=== PATIENT | female | born 1940 | race Caucasian/White ===

== ENCOUNTER → 2019-10-21 10:31 | Outpatient (CLI) | payer MEDICARE, SELFPAY ==
--- NOTE | ~2019-10-21 | DEXA_ITS ---
Bone Density Report Name: Emmy Cuevas Age: 78 Sex: Female Ethnicity: White Date of : 1940 Indication: postmenopausal; screening for osteoporosis; height loss; Referring Provider: JORDAN GOODMAN Study: Bone densitometry was performed. Exam Date: October 21, 2019 Accession number: [id number] Bone Density: Region BMD T-score Z-score Classification AP Spine (L1, L3) 0.987 -0.2 2.3 Normal Femoral Neck (Left) 0.710 -1.2 1.0 Osteopenia Total Hip (Left) 0.879 -0.5 1.5 Normal Femoral Neck (Right) 0.678 -1.5 0.7 Osteopenia Total Hip (Right) 0.893 -0.4 1.6 Normal Total Hip Mean 0.886 -0.5 1.6 Normal World Health Organization criteria for BMD impression classify patients as: Normal (T-score at or above -1.0), Osteopenia (T-score between -1.0 and -2.5), or Osteoporosis (T-score at or below -2.5). 10-year Fracture Risk(1): Major Osteoporotic Fracture 13% Hip Fracture 3.1% Reported Risk Factors: [place] (), Neck BMD=0.678, BMI=24.0 (1) FRAX(R) Version 3.08. Fracture probability calculated for an untreated patient. Fracture probability may be lower if the patient has received treatment. Previous Exams: Region Exam Age BMD T-score BMD Change BMD Change Date g/cm2 vs Baseline vs Previous AP Spine(L1, L3) 10/21/2019 78 0.987 -0.2 0.113* 0.035* 07/03/2016 75 0.951 -0.6 0.077* -0.029* 06/29/2014 73 0.980 -0.3 0.106* 0.044* 04/30/2012 71 0.935 -0.7 0.062* 0.115* 04/29/2010 69 0.820 -1.8 -0.053* -0.032* 04/27/2008 67 0.853 -1.5 -0.021 -0.057* 04/26/2006 65 0.909 -0.9 0.035* 0.035* 02/15/2004 63 0.874 -1.3 Total Hip(Left) 10/21/2019 78 0.879 -0.5 -0.185* -0.038* 07/03/2016 75 0.917 -0.2 -0.146* -0.036* 06/29/2014 73 0.953 0.1 -0.111* 0.049* 04/30/2012 71 0.904 -0.3 -0.160* -0.001 04/29/2010 69 0.905 -0.3 -0.159* -0.071* 04/27/2008 67 0.975 0.3 -0.088* 0.059* 04/26/2006 65 0.916 -0.2 -0.147* -0.147* 02/15/2004 63 1.064 1.0 Total Hip(Right) 10/21/2019 78 0.893 -0.4 -0.151* -0.064* 07/03/2016 75 0.958 0.1 -0.086* -0.035* 06/29/2014 73 0.993 0.4 -0.051* 0.061* 04/30/2012 71 0.932 -0.1 -0.112* 0.019 04/29/2010 69 0.913 -0.2 -0.131* -0.025 04/27/2008 67 0.937 0.0 -0.107* 0.007 04/26/2006 6
== END ==
PROVIDERS: Visit Provider Obstetrics & Gynecology Gynecology
DX: Z78.0 Asymptomatic menopausal state (principal); M85.89 Other specified disorders of bone density and structure, multiple sites
CPT/HCPCS: 77080

== ENCOUNTER → 2022-04-24 09:13 | Outpatient (CLI) | payer MEDICARE, SELFPAY ==
--- NOTE | ~2022-04-24 | DEXA_ITS ---
Bone Density Report Name: GUILLERMO GERMAN Age: 81 Sex: Female Ethnicity: White Date of : 1940 Indication: postmenopausal; screening for osteoporosis; height loss; Referring Provider: Ricky, Pepper Study: Bone densitometry was performed. Exam Date: April 24, 2022 Accession number: [id number] There is hypertrophic degenerative change of the lumbar spine, which results in higher than expected spine bone mineral density measurements. These spine BMD and T score and Z score measurements are not reflective of the patient's true general bone mineral density. Bone Density: Region BMD T-score Z-score Classification AP Spine (L1, L3) 0.969 -0.4 2.2 Normal Femoral Neck (Left) 0.685 -1.5 0.9 Osteopenia Total Hip (Left) 0.866 -0.6 1.5 Normal Femoral Neck (Right) 0.664 -1.7 0.7 Osteopenia Total Hip (Right) 0.834 -0.9 1.3 Normal Total Hip Mean 0.850 -0.8 1.4 Normal World Health Organization criteria for BMD impression classify patients as: Normal (T-score at or above -1.0), Osteopenia (T-score between -1.0 and -2.5), or Osteoporosis (T-score at or below -2.5). 10-year Fracture Risk(1): Major Osteoporotic Fracture 13% Hip Fracture 3.6% Reported Risk Factors: [place] (), Neck BMD=0.664, BMI=23.2 (1) FRAX(R) Version 3.08. Fracture probability calculated for an untreated patient. Fracture probability may be lower if the patient has received treatment. Previous Exams: Region Exam Age BMD T-score BMD Change BMD Change Date g/cm2 vs Baseline vs Previous AP Spine(L1, L3) 04/24/2022 81 0.969 -0.4 0.095* -0.018 10/21/2019 78 0.987 -0.2 0.113* 0.035* 07/03/2016 75 0.951 -0.6 0.077* -0.029* 06/29/2014 73 0.980 -0.3 0.106* 0.044* 04/30/2012 71 0.935 -0.7 0.062* 0.115* 04/29/2010 69 0.820 -1.8 -0.053* -0.032* 04/27/2008 67 0.853 -1.5 -0.021 -0.057* 04/26/2006 65 0.909 -0.9 0.035* 0.035* 02/15/2004 63 0.874 -1.3 Total Hip(Left) 04/24/2022 81 0.866 -0.6 -0.198* -0.013 10/21/2019 78 0.879 -0.5 -0.185* -0.038* 07/03/2016 75 0.917 -0.2 -0.146* -0.036* 06/29/2014 73 0.953 0.1 -0.111* 0.049* 04/30/2012 71 0.904 -0.3 -0.160* -0.001 04/29/2010 69 0.905 -0.3 -0.159* -0.071* 04/27/2008 67 0.975 0.3 -0.088* 0.059* 04/26/2006 65 0.916 -0.2 -0.147* -0.147* 02/15/2004 63 1.064 1.0 Total Hip(Right)
== END ==
PROVIDERS: PCP Family Medicine; Visit Provider Nurse Practitioner
DX: Z78.0 Asymptomatic menopausal state (principal); M85.852 Other specified disorders of bone density and structure, left thigh; M85.851 Other specified disorders of bone density and structure, right thigh
CPT/HCPCS: 77080

== ENCOUNTER 2024-10-05 19:36 | Emergency (ER) | payer OTHER, MEDICARE, SELFPAY ==
--- OUTSIDE RECORDS SUMMARY | 2024-10-05 19:38 | XMS_ITS | Encounter Summary ---
Author Organization [facility] Facility Care Team Providers Care Protective Services Officer Name Role Phone Ranulfo Nava MD Primary Care Provider [phone] Madina Lozano MD Unavailable [phone] Encounter Details Date Type Department Care Team (Latest Contact Info) Description 06/08/2017 Orders Only [facility] Provider, MD Eulalia [address] [place] [id number] Social History Tobacco Use Types Packs/Day Years Used Date Smoking Tobacco: Former Comments Unknown Sex and Gender Information Value Date Recorded Sex Assigned at Not on file Legal Sex Female 1:09 AM WIND FIELD MANAGER Gender Identity Female 04/22/2020 7:32 AM WIND FIELD MANAGER Sexual Orientation Straight 06/27/2021 7: 53 AM CDT documented as of this encounter Plan of Treatment Not on file documented as of this encounter Procedures Procedure Name Priority Date/Time Associated Diagnosis Comments SCAN - LABS 06/11/2017 12:00 AM CDT documented in this encounter Results * SCAN - LABS (06/11/2017 12:00 AM CDT) Narrative 06/11/2017 12:00 AM CDT Ordered by an unspecified provider. Historical Provider Final Res ult documented in this encounter Visit Diagnoses Not on filedocumented in this encounter Care Teams Protective Services Officer Relationship Specialty Start Date End Date Ranulfo Nava MD PCP - General Family Medicine 05/06/18 Madina Lozano MD [address] [place] [address] Referring Physician Gynecology 07/05/22 documented as of this encounter
--- OUTSIDE RECORDS SUMMARY | 2024-10-05 19:38 | XMS_ITS | Encounter Summary ---
Author Organization 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 Historical Provider Final Res ult documented in this encounter Visit Diagnoses Not on filedocumented in this encounter Care Teams Coal Digger Relationship Specialty Start Date End Date Ranulfo Nava MD PCP - General Family Medicine 05/06/18 Madina Lozano MD [address] [place] [address] Referring Physician Gynecology 07/05/22 documented as of this encounter
--- OUTSIDE RECORDS SUMMARY | 2024-10-05 19:38 | XMS_ITS | Clinical Summary ---
Author Organization [facility] Address [address] [place] [address] Care Team Providers Care Director Smb Sales Name Role Phone Ranulfo Nava MD Primary Care Provider [phone] Madina Lozano MD Unavailable [phone] Allergies Active Allergy Reactions Criticality Noted Date Comments Nsaids (Non-Steroidal Anti-Inflammatory Drug) Other (See comments) Low 04/26/2016 Penicillins Other (See comments),Rash Medium 7 Sulfa (Sulfonamide Antibiotics) Other (See comments) Low 05/27/2013 Venom-Honey Bee Other (See comments),Rash High 04/26 Medications aspirin 81 mg chewable tablet 06/24/2015Aspirin, po solid 81 mg Tablet, delayed release (enteric coated)POdailyCurrent Medication 06/24/19 16 Active calcium carbonate-vit henderson D3 600 mg calcium- 200 unit capsule 2 (two) times a day 06/24/19 16 Active multivitamin capsule 06/24/2015Multivitamin, po solid TabletPOdailyCurrent Medication 06/24/19 16 Active ergocalcifero l (VITAMIN D) 50,000 unit capsule TK 1 C PO EVERY MONTH 3 18 Active MAGNESIUM OXIDE ORAL Take 144 mg by mouth 2 (two) times a day Active nmirh-5-ufl-e pa-dpa-fish oil 1,050-1,200 mg capsule 1 capsule Active cetirizine (ZyrTEC) 10 mg tablet Take 1 tablet (10 mg total) by mouth daily Act karen nebivoloL (BYSTOLIC) 5 mg tablet TAKE 1 TABLET BY MOUTH DAILY 90 tablet 3 12/24/19 24 Active rosuvastatin (CRESTOR) 5 mg tablet TAKE 1 TABLET BY MOUTH EVERY THIRD DAY 90 tablet 3 04/09/19 25 Active amLODIPine-be nazepriL (LOTREL) 10-40 mg per capsule TAKE 1 CAPSULE BY MOUTH DAILY 100 capsule 1 06/26/19 25 Active Active Problems Problem Noted Date Diagnosed Date Osteopenia of multiple sites 11/01/2020 History of breast cancer 05/06/2019 Medicare annual wellness visit, subsequent 05/06 Lumbar radiculopathy 08/07/2017 HTN (hypertension) 06/03/2015 Overview (10/24/2018): Controlled Mixed hyperlipidemia 06/03/2015 Overview (10/24/2018): Unmedicated, patient declines medication, states understanding of risk Vitamin D deficiency 06/03/2015 Resolved Problems Problem Noted Date Diagnosed Date Resolved Date COVID-19 virus infection 03/09/2022 Cervical adenopathy 03/09/2022 03/27/19 24 Malignant neoplasm of female breast 05/06/2018 11/12/2023 Anxiety 06/21/2017 11/10/2021 Sciatica of right side 06/11/201705/14 Sciatica of left side 11/03/20152023 Overview (11/15/2022): Responds to conservative measures Allergic rhinitis 06/03/2015 05/14/2023 Encounters Date Type Department Care Team Description 07/21/2024 Results Follow-Up [facility] Surgery [address] [place] [phone] Madeline Hatch NP Screening Mammogram Bilateral W Allie 07/18/2024 9:15 AM CDT Office Visit [facility] Surgery [address] [place] [address] [address] [place] [phone] Madeline Hatch NP Infiltrating ductal carcinoma of right breast (HCC) (Primary Dx); History of breast cancer; Encounter for screening mammogram for malignant neoplasm of breast 07/18/2024 9:12 AM CDT - 07/18/2024 11:59 PM CDT Hospital Encounter [facility] - Breast Imaging [address] [facility] Floor [address] [place] [address] History of breast cancer; Encounter for screening mammogram for malignant neoplasm of breast Discharge Disposition: Discharge to home or self care 07/07/2024 Orders Only [facility] Surgery [address] [facility] Floor [address] [place] [phone] Oksana Burns CMA History of breast cancer (Primary Dx); Encounter for screening mammogram for malignant neoplasm of breast from Last 3 Months Immunizations Immunization Administration Dates Next Due Influenza, Quad, Adjuvantate d, Intramuscular 12/15/2019 Influenza, Quadrivalent, Kim l Culture-based MDCK, Preservative Free, Antibiotic Free, Intramuscular 12/20/2022 Influenza, Quadrivalent, Hig h Dose, Preservative Free, Intrr 12/14/2020 Influenza, Quadrivalent, Spl it, Intramuscular 12/17/2022,12/14/2021 Influenza, Quadrivalent, Spl it, Preservative Free, Intramuscular 12/14/2021,12/12/2018 Influenza, Trivalent, Adjuva nted, Intramuscular 12/11/2017 Influenza, Trivalent, High D ose, Split, Preservative Free, Intramuscular 12/12/2018 Influenza, Trivalent, IM (MDV) 7,11/26/2014,11/27/2013,11/27 Influenza, Trivalent, Preser vative Free, Intramuscular 11/28/2015 Influenza, Unspecified 12/20/2023,2020,12/12/2017,11/28,06/24/2015,06/08/2014,06/09/2013 Moderna SARS-CoV-2 Monovalen t Vaccination (12+ YRS) 06/07/2020,04/29/2020 Moderna Sars-cov-2 Bivalent Vaccine 50 Mcg/0.5 mL (12+ YRS)-Blue/Galvan 12/19/2023 Pneumococcal Conjugate PCV 13 11/06/2016 Pneumococcal Polysaccharide PPV23 12/17/2008 Td, adsorbed 12/14/2003 ZOSTER LIVE 06/02/2011 ZOSTER Recombinant 01/16/2023,11/17/2022 Surgical History Surgery Date Site/Laterality Comments BREAST LUMPECTOMY 03/19/2005 - 03/18/2006 Right TONSILLECTOMY AND ADENOIDECTOMY 1946 CERVICAL CONE BIOPSY 1967 VAGINAL DELIVERY x4 COLONOSCOPY Medical History Medical History Date Comments Hyperlipidemia Hypertension Anxiety Family History Medical History Relation Name Comments No Known Problems Brother Hypertension Father No Known Problems Maternal Grandfather No Known Problems Maternal Grandmother Hypertension Mother No Known Problems Paternal Grandfather No Known Problems Paternal Grandmother Alzheimer's disease Sister Relation Name Status Comments Brother Alive Father Maternal Grandfather Maternal Grandmother Mother Paternal Grandfather Paternal Grandmother Sister Social History Tobacco Use Types Packs/Day Years Used Date Smoking Tobacco: Former Cigarettes 0.5 12 1 960 - 1971 Smokeless Tobacco: Never Tobacco Cessation:Counseling Given: Not Answered Alcohol Use Standard Drinks/Week Comments No 0 (1 standard drink = 0.6 oz pur e alcohol) AUDIT-C Answer Date Recorded Q1: How often do you have a drink containing alc ohol? Monthly or less 09/01/2021 Q2: How many drinks containi ng alcohol do you have on a typical day when you are drinking? 1 or 2 09/01/2021 Q3: How often do you have si x or more drinks on one occasion? Never 09/01/2021 PHQ-2 Answer Date Recorded PHQ-2 Total Score (If total score is 3 or more points, staff should administer the PHQ-9) 0 05/19/2024 Comments No Sex and Gender Information Value Date Recorded Sex Assigned at Not on file Legal Sex Female 1:09 AM SALES UTILITY REPRESENTATIVE Gender Identity Female 04/22/2020 7:32 AM SALES UTILITY REPRESENTATIVE Sexual Orientation Straight 06/27/2021 7: 53 AM CDT Obstetrics History Last Filed Vital Signs Vital Sign Reading Time Taken Comments Blood Pressure 126/70 05/23/2024 7:00 AM SALES UTILITY REPRESENTATIVE pt reported Pulse 67 05/23/2024 7:00 AM SALES UTILITY REPRESENTATIVE Temperature 36.6 C (97.9 F) 05/19/2024 8:43 AM SALES UTILITY REPRESENTATIVE Respiratory Rate 18 03/27/2023 11:5 1 AM SALES UTILITY REPRESENTATIVE Oxygen Saturation 99% 05/19/2024 8:4 3 AM SALES UTILITY REPRESENTATIVE Inhaled Oxygen Concentration - - Weight 52.7 kg (116 lb 3.2 oz) 07/19/19 8:48 AM CDT Height 151 cm (4' 11.45) 07/18/2024 8: 48 AM CDT Body Mass Index 23.12 07/18/2024 8:48 AM CDT Plan of Treatment Health Maintenance Due Date Last Done Comments Hepatitis B Screening 1958 DTaP/Tdap/Td Vaccine (1 - Tdap) 12/15/2003 Covid-19 Vaccine (2023-2 5 season) 2024 12/19/2023, 10/11/2021, 02/03/2021, Additional history exists Osteoporosis Screening-Bone Density Scan 04/24/2024 04/24/2022 Influenza Vaccine (#1) 2024 , 12/20/2022, 12/17/2022, Additional history exists Depression Screening 05/19/2025 05/19/2024, 05/14/2023, 11/15/2022, Additional history exists Fall Risk Assessment 05/19/2025 05/19/2024, 05/14/2023, 11/15/2022, Additional history exists Well Visit 65+ 05/19/2025 05/19/2024, 04/20, 05/11/2022, Additional history exists Pneumococcal vaccine 65+ Completed 11/06/2016, 03/2008 Zoster Vaccine Completed 01/16/2023, 03/2022, 06/02/2011 Procedures Procedure Name Priority Date/Time Associated Diagnosis Comments SCREENING MAMMOGRAM BILATERAL W ALLIE Schedule Routine, Read Routine (OP Routine) 07/18/2024 9:29 AM CDT History of breast cancer Encounter for screening mammogram for malignant neoplasm of breast HM DEXA SCAN Routine 04/24/2022 from Last 3 Months or Most Recently Relevant to Health Maintenance Results * Screening Mammogram Bilateral W Allie (07/18/2024 9:29 AM CDT) Anatomical Region Laterality Modality Breast Bilateral Mammography Addenda Addendum by Karma Deleon MD on 07/21/2024 11:33 AM CDT ADDENDED REPORT 07/21/2024 at 11:33:26 Addendum: Mammogram Findings: The breasts are heterogeneously dense, which may obscure small masses. There is a post-surgical scar in the right breast. Finding remains unchanged from the prior study. Impression: Upon further review, post-surgical scar in the right breast is benign. As this patient is over 80 years of age, further mammographic screening can be obtained as clinically indicated. OVERALL FINAL ASSESSMENT: BI-RADS CATEGORY 2: Benign. THIS REPORT HAS BEEN ADDENDED Narrative 07/21/2024 11:32 AM CDT ORIGINAL REPORT Mammogram Technique: Bilateral Digital Breast Tomosynthesis, Bilateral C-view 2D Screening mammogram. Views obtained: bilateral craniocaudal and bilateral mediolateral oblique. Computer Aided Detection was performed. Mammogram Findings: The present examination has been compared to prior imaging studies performed at [facility] on 07/04/2021, 07/05/2022 and 07/11/2023. There are scattered areas of fibroglandular density. There is no suspicious abnormality in either breast. There are no significant changes from the prior study. Impression: There is no mammographic evidence of malignancy. As this patient is over 80 years of age, further mammographic screening can be obtained as clinically indicated. OVERALL FINAL ASSESSMENT: BI-RADS CATEGORY 1: Negative. Procedure Note Karma Deleon MD - 07/21/2024 ORIGINAL REPORT Mammogram Technique: Bilateral Digital Breast Tomosynthesis, Bilateral C-view 2D Screening mammogram. Views obtained: bilateral craniocaudal and bilateral mediolateral oblique. Computer Aided Detection was performed. Mammogram Findings: The present examination has been compared to prior imaging studies performed at [facility] on 07/04/2021, 07/05/2022 and 07/11/2023. There are scattered areas of fibroglandular density. There is no suspicious abnormality in either breast. There are no significant changes from the prior study. Impression: There is no mammographic evidence of malignancy. As this patient is over 80 years of age, further mammographic screeningcan be obtained as clinically indicated. OVERALL FINAL ASSESSMENT: BI-RADS CATEGORY 1: Negative. Madeline Hatch NP IMG MAMMO PROCEDURES Edite d Result - Final * DEXA SCAN (04/24/2022) Historical Provider HEALTH MAINTENANCE Final Result from Last 3 Months or Most Recently Relevant to Health Maintenance Insurance [facility] MEDICARE ADVANTAGE [facility] MEDICARE Address: [facility] [address] [place] [address] [facility] MEDICARE Address: [address] [place] [phone] [facility] MEDICARE Address: [address] [place] [address] Advance Directives For more information, please contact: [phone] Documents on File Type Date Recorded Patient Executive Producer Expl anation Power of Steam Roller Operator 09/01/2021 6:51 AM Advance Directives and Livin g Will 09/01/2021 6:50 AM ADVANCE DIRECTIVE 11/01/2020 Care Teams Director Smb Sales Relationship Specialty Start Date End Date Ranulfo Nava MD PCP - General Family Medicine 05/06/18 Madina Lozano MD [address] [facility] [address] [place] [address] Referring Physician Gynecology 07/05/22
--- OUTSIDE RECORDS SUMMARY | 2024-10-05 19:38 | XMS_ITS | Referral Summary ---
Author Organization [facility] al Address [address] [place] [address] Care Team Providers Care Wire Loop Machine Operator Name Role Phone Ranulfo Nava MD Primary Care Provider [phone] Madina Lozano MD Unavailable [phone] Encounters Date Type Department Care Team Description 07/21/2024 Results Follow-Up [facility] Surgery [address] [place] [phone] Madeline Hatch NP Screening Mammogram Bilateral W Allie 07/18/2024 9:12 AM CDT - 07/18/2024 11:59 PM CDT Hospital Encounter [facility] - Breast Imaging [address] [place] [address] History of breast cancer; Encounter for screening mammogram for malignant neoplasm of breast Discharge Disposition: Discharge to home or self care 07/18/2024 9:15 AM CDT Office Visit [facility] Surgery [address] [place] [phone] Madeline Hatch NP Infiltrating ductal carcinoma of right breast (HCC) (Primary Dx); History of breast cancer; Encounter for screening mammogram for malignant neoplasm of breast 07/07/2024 Orders Only [facility] Surgery [address] [place] [address] [address] [place] [address] Oksana Burns CMA History of breast cancer (Primary Dx); Encounter for screening mammogram for malignant neoplasm of breast from Last 3 Months Allergies Active Allergy Reactions Criticality Noted Date [...] mouth 2 (two) times a day Active dobiq-1-cik-e pa-dpa-fish oil 1,050-1,200 mg capsule 1 capsule [...] virus infection 03/09/2022 Cervical adenopathy 03/09/2022 03/27/19 Malignant neoplasm of female breast 05/06/2018 11/12/2023 Anxiety 06/21/2017 11/10/2021 Sciatica of right side 06/11/201705/14 Sciatica of left side 11/03/20152023 Overview (11/15/2022): Responds to conservative measures Allergic rhinitis 06/03/2015 05/14/2023 Immunizations Immunization Administration Dates Next Due Influenza, [...] 12/14/2003 ZOSTER LIVE 06/02/2011 ZOSTER Recombinant 01/16/2023,11/17/2022 Social History Tobacco Use Types Packs/Day Years Used Date Smoking Tobacco: Former Cigarettes 0.5 12 1 960 - 1972 Smokeless Tobacco: Never Tobacco Cessation:Counseling Given: Not [...] file Legal Sex Female 1:09 AM SALES MARKETING MANAGER Gender Identity Female 04/22/2020 7:32 AM SALES MARKETING MANAGER Sexual Orientation Straight 06/27/2021 7: 53 AM CDT Last Filed Vital Signs Vital Sign Reading Time Taken Comments Blood Pressure 126/70 05/23/2024 7:00 AM SALES MARKETING MANAGER pt reported Pulse 67 05/23/2024 7:00 AM SALES MARKETING MANAGER Temperature 36.6 C (97.9 F) 05/19/2024 8:43 AM SALES MARKETING MANAGER Respiratory Rate 18 03/27/2023 11:5 1 AM SALES MARKETING MANAGER Oxygen Saturation 99% 05/19/2024 8:4 3 AM SALES MARKETING MANAGER Inhaled Oxygen Concentration - - Weight 52.7 kg (116 lb 3.2 oz) 07/19/19 8:48 AM CDT Height 151 cm (4' 11.45) 07/18/2024 8: 48 AM CDT Body Mass Index 23.12 07/18/2024 8:48 AM CDT Plan of Treatment Not on file Procedures Procedure Name Priority Date/Time Associated Diagnosis Comments SCREENING MAMMOGRAM BILATERAL W ALLIE Schedule Routine, Read Routine (OP Routine) 07/18/2024 9:29 AM CDT History of breast cancer Encounter for screening mammogram for malignant neoplasm of breast DEXA SCAN Routine 04/24/2022 from Last 3 [...] compared to prior imaging studies performed at [facility] on 07/04/2021, 07/05/2022 and 07/11/2023. There [...] compared to prior imaging studies performed at [facility] on 07/04/2021, 07/05/2022 and 07/11/2023. There [...] Most Recently Relevant to Health Maintenance Insurance [facility] MEDICARE ADVANTAGE MEDICARE ADVANTAGE Advance Directives For more information, please contact: [phone] Documents on File Type Date Recorded Patient Body Fitter Expl anation Power of Attendant Campground 09/01/2021 6:51 AM Advance Directives and Livin g Will 09/01/2021 6:50 AM ADVANCE DIRECTIVE 11/01/2020 Care Teams Wire Loop Machine Operator Relationship Specialty Start Date End Date Ranulfo Nava MD PCP - General Family Medicine 05/06/18 Madina Lozano MD [address] [address] Referring Physician Gynecology 07/05/22
--- OUTSIDE RECORDS SUMMARY | 2024-10-05 19:38 | XMS_ITS | Encounter Summary ---
Author Organization [facility] Facility Care Team Providers Care Elevator Operator Freight Name Role Phone Ranulfo Nava MD Primary Care Provider [phone] Madina Lozano MD Unavailable [phone] Encounter Details Date Type Department Care Team (Latest Contact Info) Description 06/03/2018 Orders Only [facility] CLINCON[facility] ProviderEulalia MD [address] [place] [address] Social History Tobacco Use Types Packs/Day Years Used Date Smoking Tobacco: Former Alcohol Use Standard Drinks/Week Comments No 0 (1 standard drink = 0.6 oz pur e alcohol) Comments Unknown Sex and Gender Information Value Date Recorded Sex Assigned at Not on file Legal Sex Female 1:09 AM ENGINEERING TECHNICIAN PARKING Gender Identity Female 04/22/2020 7:32 AM ENGINEERING TECHNICIAN PARKING Sexual Orientation Straight 06/27/2021 7: 53 AM CDT documented as of this encounter Plan of Treatment Not on file documented as of this encounter Procedures Procedure Name Priority Date/Time Associated Diagnosis Comments SCAN - LABS 06/15/2018 12:00 AM CDT documented in this encounter Results * SCAN - LABS (06/15/2018 12:00 AM CDT) Narrative 06/15/2018 12:00 AM CDT Ordered by an unspecified provider. us Historical Provider Final Res ult documented in this encounter Visit Diagnoses Not on filedocumented in this encounter Care Teams Elevator Operator Freight Relationship Specialty Start Date End Date Ranulfo Nava MD PCP - General Family Medicine 05/06/18 Madina Lozano MD [address] [place] [address] Referring Physician Gynecology 07/05/22 documented as of this encounter
--- OUTSIDE RECORDS SUMMARY | 2024-10-05 19:38 | XMS_ITS | Encounter Summary ---
Author Organization [facility] Facility Care Team Providers Care Mfts Name Role Phone Ranulfo Nava MD Primary Care Provider [phone] Madina Lozano MD Unavailable [phone] Encounter Details Date Type Department Care Team (Latest Contact Info) Description 08/10/2017 Orders Only [facility] CLINCONV ProviderEulalia MD [address] [place] [address] Social History Tobacco Use Types Packs/Day Years Used Date Smoking Tobacco: Former Comments Unknown Sex and Gender Information Value Date Recorded Sex Assigned at Not on file Legal Sex Female 1:09 AM CHEMICAL UNIT OPERATOR Gender Identity Female 04/22/2020 7:32 AM CHEMICAL UNIT OPERATOR Sexual Orientation Straight 06/27/2021 7: 53 AM CDT documented as of this encounter Plan of Treatment Not on file documented as of this encounter Procedures Procedure Name Priority Date/Time Associated Diagnosis Comments PROCEDURE - RESULT 08/15/2017 12 :00 AM CDT PROCEDURE - RESULT 08/15/2017 12 :00 AM CDT documented in this encounter Results * PROCEDURE - RESULT (08/15/2017 12:00 AM CDT) Narrative 08/15/2017 12:00 AM CDT Ordered by an unspecified provider. us Historical Provider Final Res ult * PROCEDURE - RESULT (08/15/2017 12:00 AM CDT) Narrative 08/15/2017 12:00 AM CDT Ordered by an unspecified provider. us Historical Provider Final Res ult documented in this encounter Visit Diagnoses Not on filedocumented in this encounter Care Teams Mfts Relationship Specialty Start Date End Date Ranulfo Nava MD PCP - General Family Medicine 05/06/18 Madina Lozano MD [address] [place] [address] Referring Physician Gynecology 07/05/22 documented as of this encounter
--- OUTSIDE RECORDS SUMMARY | 2024-10-05 19:38 | XMS_ITS | Encounter Summary ---
Author Organization [facility] Facility Care Team Providers Care Utility Accounts Director Name Role Phone Ranulfo Nava MD Primary Care Provider [phone] Madina Lozano MD Unavailable Encounter Details Date Type Department Care Team (Latest Contact Info) Description 07/18/2017 Orders Only [facility] CLINCONV Provider, MD Eulalia [address] [place] [address] Social History Tobacco Use Types Packs/Day Years Used Date Smoking Tobacco: Former Comments Unknown Sex and Gender Information Value Date Recorded Sex Assigned at Not on file Legal Sex Female 1:09 AM MANAGER COMMUNITY RELATIONS Gender Identity Female 04/22/2020 7:32 AM MANAGER COMMUNITY RELATIONS Sexual Orientation Straight 06/27/2021 7: 53 AM CDT documented as of this encounter Plan of Treatment Not on file documented as of this encounter Procedures Procedure Name Priority Date/Time Associated Diagnosis Comments SCAN - LABS 07/19/2017 12:00 AM CDT documented in this encounter Results * SCAN - LABS (07/19/2017 12:00 AM CDT) Narrative 07/19/2017 12:00 AM CDT Ordered by an unspecified provider. Historical Provider Final Res ult documented in this encounter Visit Diagnoses Not on filedocumented in this encounter Care Teams Utility Accounts Director Relationship Specialty Start Date End Date Ranulfo Nava MD PCP - General Family Medicine 05/06/18 Madina Lozano MD [address] [place] [address] Referring Physician Gynecology 07/05/22 documented as of this encounter
--- OUTSIDE RECORDS SUMMARY | 2024-10-05 19:38 | XMS_ITS | Clinical Summary ---
Author Organization [facility] Address [address] [place] [address] Care Team Providers Care Drop Forger Helper Name Role Phone Rafael Olea MD Primary Care Provider [phone] Allergies Active Allergy Reactions Criticality Noted Date Comments Bee Venom Rash High 08/07/2017 Penicillins Rash Low 08/07/2017 Medications vitamin D2, ergocalciferol, [address] UNITS capsule Take 50,000 Units by mouth monthly. Active calcium citrate-vitamin D 200-250 MG-UNIT Tab Take 1 tablet by mouth 2 (two) times daily. Active multi vitamin/mineral s tablet Take 1 tablet by mouth daily. Active aspirin EC (ASPIRIN) 81 MG EC tablet Take 81 mg by mouth daily. Active loratadine 10 MG tablet Take 10 mg by mouth daily. Active hydrocodone-usha taminophen 5-325 MG tablet Take 1 tablet by mouth every 6 (six) hours as needed for Pain. Active meloxicam 7.5 MG tablet Take 7.5 mg by mouth 2 (two) times a day. Active Amlodipine Besy-Benazepril HCl (LOTREL) 10-40 MG Cap Take 1 capsule by mouth daily. Active Misc Natural Products (TURMERIC CURCUMIN) capsule Take 1 capsule by mouth daily. Active hydrocodone-usha taminophen 5-325 MG tablet Take 1 tablet by mouth every 6 (six) hours as needed. 30 tablet 09/12/2017 Active Active Problems Problem Noted Date Diagnosed Date Lumbar radiculopathy 08/07/2017 Social History Tobacco Use Types Packs/Day Years Used Date Smoking Tobacco: Former Cigarettes 1 967 - 1971 Smokeless Tobacco: Never Alcohol Use Standard Drinks/Week Comments Yes 0 (1 standard drink = 0.6 oz pur e alcohol) rarely Comments No Sex and Gender Information Value Date Recorded Sex Assigned at Not on file Legal Sex Female 4:12 PM CDT Gender Identity Not on file Sexual Orientation Not on file Last Filed Vital Signs Vital Sign Reading Time Taken Comments Blood Pressure 152/73 09/06/2017 12:22 PM CDT Pulse 75 09/06/2017 12:22 PM CDT Temperature 36.6 C (97.9 F) 09/06/2017 11:32 AM CDT Respiratory Rate 20 09/06/2017 12:22 PM CDT Oxygen Saturation 99% 09/06/2017 12:22 PM CDT Inhaled Oxygen Concentration - - Weight 52.7 kg (116 lb 3.2 oz) 08/10/2017 3:08 P M CDT Height 151.8 cm (4' 11.75) 08/10/2017 3:08 PM C DT Body Mass Index 22.88 08/10/2017 3:08 PM CDT Plan of Treatment Health Maintenance Due Date Last Done Comments DTaP, Tdap and Td Vaccines ( 1 - Tdap) 11[birth year]01/1959 Pneumococcal Vaccine: 50+ Ye ars (1 of 1 - PCV) 1990 Zoster Vaccines (1 of 2) 1990 Annual Medicare Wellness Visit 2005 Dexa Scan (General) 2005 RSV Immunization or 60+ Years (1 - 1-dose 75+ series) 11/01/2015 COVID-19 Vaccine ( - 2023-2 5 season) 2023 Meningococcal B Vaccine Aged Out No l onger eligible based on patient's age to complete this topic Meningococcal Vaccine Aged Out No juan ijeoma eligible based on patient's age to complete this topic RSV Immunizations Under 20 Months Aged Out No longer eligible based on patient's age to complete this topic Insurance [facility] Advance Directives Documents on File Type Date Recorded Patient Supervisor Screen Making Expl anation Advance Directives and Living Will 09/09/2017 2:09 PM 05-22-16 POA FOR HEALTHCARE Care Teams Drop Forger Helper Relationship Specialty Start Date End Date Rafael Olea MD [address] [place] [address] PCP - General FAMILY PRACTICE 07/19/17
[2024-10-05 20:18] VITALS: BP 158/65; PULSE 85; RESP 16; TEMP 36.6; O2SAT 96
[2024-10-05 22:28] VITALS: BP 132/61; PULSE 77; RESP 18; O2SAT 98
--- NOTE | 2024-10-05 22:33 | ED.ANIMALBIT ---
HPI - Animal Bite General Chief Complaint: Animal Bite Stated Complaint: dog bite to right forearm Time Seen by Provider: 10/05/24 21:53 History of Present Illness HPI narrative: 83-year-old female with no pertinent past medical history presenting to the ER for evaluation of a dog bite to the right forearm. Patient is not up-to-date on her vaccines for tetanus. The dog is up-to-date on vaccines and is a household animal and her neighbor's dog. Sounds like it could have been a provoked bite while she was approaching her garden with the animal on the other side of the fence. Patient denies any other injuries and has a single dog bite with some macerated tissue to the lateral right forearm. No active bleeding. No restricted range of motion or scooping machine tender strength loss. No significant swelling or drainage. Bleeding controlled. No other appreciable trauma and she was otherwise in her normal state of health. No systemic symptoms. Related Data Home Medications ?Medication ?Instructions ?Recorded ?Confirmed ?Last Taken ?Type amlodipine 10 mg-benazepril 40 mg 1 cap PO DAILY 05/25/21 05/25/21 Unknown History capsule aspirin 81 mg tablet,delayed 81 mg PO DAILY 05/25/21 05/25/21 Unknown History release (Adult Low Dose Aspirin) Allergies Allergy/AdvReac Type Severity Reaction Status Date / Time Penicillins Allergy Mild Unknown Verified 10/05/24 19:40 Sulfa (Sulfonamide Allergy Mild Unknown Verified 10/05/24 19:40 Antibiotics) Review of Systems Review of Systems: As reviewed above in HPI [facility] Social History Social History Smoking status: Never smoker Alcohol intake: never Substance use: never Exam Narrative: GENERAL: [Well-appearing, well-nourished, and in no acute distress.] HEAD: [Normocephalic, atraumatic.] EYES: [PERRLA and EOMI.] ENT: Nares clear, no rhinorrhea or epistaxis. Mucous membranes moist. NECK: Supple. CHEST: [Clear to auscultation. No respiratory distress.] HEART: [Regular rate and rhythm]. No murmur heard. [Normal peripheral pulses.] ABDOMEN: [Soft, nondistended], [nontender], [No rigidity or guarding] EXTREMITIES: Normal range of motion, no extremity edema, scooping machine tender strength 5/5, full range of motion of the elbow, wrist and able to oppose each digit without difficulty. SKIN: There is an irregularly appearing smhzhc-oj-quapbq shaped avulsion of skin tissue with some soft tissue extruding fat to the lateral right forearm but no swelling or bleeding. Dimensions measure approximately 2 cm x 1.5 cm NEURO: [No focal deficits]. Alert and oriented [x3.] PSYCH: [Normal mood and affect.] Course Vital Signs Vital signs: Vital Signs Temperature 36.6 C 10/05/24 20:18 Pulse Rate 85 10/05/24 20:18 Respiratory Rate 16 10/05/24 20:18 Blood Pressure 158/65 H 10/05/24 20:18 Pulse Oximetry 96 10/05/24 20:18 Oxygen Delivery Room Air 10/05/24 20:18 Temperature 36.6 C 10/05/24 20:18 Pulse Rate 77 10/05/24 22:28 Respiratory Rate 18 10/05/24 22:28 Blood Pressure 132/61 10/05/24 22:28 Pulse Oximetry 98 10/05/24 22:28 Oxygen Delivery Room Air 10/05/24 20:18 Procedures Laceration Laceration 1: Date: 10/06/24 Time: 00:10 Site: upper extremity Side (If applicable): right Size (cm): 2 Description: irregular and contaminated Depth: simple, single layer Local Anesthetic: lidocaine 1% (let gel) Pre-repair: wound explored, irrigated extensively and deep structures intact ====== Skin Level ====== Skin layer closed with: vicryl Size (cm): 5-0 Number of sutures: 6 Technique: simple, interrupted ====== Subcutaneous Layer ====== ====== Muscle Layer ====== ====== Tendon Layer ====== Dressing: Non adherent dressing and gauze wrap MDM - Animal Bite MDM Narrative Medical decision making narrative: 83-year-old female with no pertinent past medical history presenting to the ER for evaluation of a dog bite to the right forearm. Patient is not up-to-date on her vaccines for tetanus. The dog is up-to-date on vaccines and is a household animal and her neighbor's dog. Sounds like it could have been a provoked bite while she was approaching her garden with the animal on the other side of the fence. Patient denies any other injuries and has a single dog bite with some macerated tissue to the lateral right forearm. No active bleeding. No restricted range of motion or scooping machine tender strength loss. No significant swelling or drainage. Bleeding controlled. No other appreciable trauma and she was otherwise in her normal state of health. No systemic symptoms. Examination shows normal range of motion and good scooping machine tender strength without any evidence of tendon or muscular injury. There is an irregularly appearing cbyhnw-gp-uswsog shaped avulsion of skin tissue with some soft tissue extruding fat to the lateral right forearm but no swelling or bleeding. Dimensions measure approximately 2 cm x 1.5 cm. Wound does not appear contaminated and was irrigated on scene by the family who was nursing staff. Her tetanus was updated here in the emergency department. She is allergic to penicillins and will be started on doxycycline from a million by prophylaxis. Loose approximation of the wound will be achieved with sutures given the irregular contours and will avoid tight closure to prevent trapping with infection. No signs of deformity or suspected retained particles/foreign bodies on exam and with irrigation. Lidocaine with epinephrine used for analgesia of the local wound surface. Patient stable for discharge in given return precautions, wound care instructions and antibiotics. Medical Records Attestation: I reviewed the patient's medical records. Lab Data Attestation: I reviewed the patient's lab results. Discharge Plan Discharge Clinical Impression: Dog bite, Forearm laceration Patient Disposition: Home Condition: Stable Instructions: Antibiotic Form, Animal Bite (ED), Care For Your Stitches (ED), Laceration (ED) Additional Instructions: You have 6 sutures in your laceration for loose repair of the wound to prevent significant infection. Keep the area covered with gauze and bandages that he can change at least once a day. Keep the area clean and you can wash with soap and water. Will prescribe be 2 weeks of antibiotics including doxycycline twice daily. You can take Tylenol and ibuprofen for pain and swelling. Anticipate some bruising and some drainage with some minor oozing of blood as well. In approximately 10-14 days get the sutures removed and you can come back to the emergency department, any urgent care or your primary care provider and they can do this quickly. He started noticing streaking redness going up your elbow and arm, fevers, worsening pain, purulent pus drainage or any other emergent concerns return to the ER at that time otherwise follow-up with regular outpatient PCP. Patient Language: Polish Prescriptions: New doxycycline hyclate 100 mg capsule 100 mg PO BID 14 Days Qty: 28 0RF No Action amlodipine-benazepril 10-40 mg capsule 1 cap PO DAILY aspirin [Adult Low Dose Aspirin] 81 mg tablet,delayed release (DR/EC) 81 mg PO DAILY Follow-up/Referrals: Brandy,Ranulfo [place] MD [Primary Care Provider] - Time of Disposition: 00:13
[2024-10-05] MEDS: LIDOCAINE, EPINEPHRINE, TETRACAINE VISCOUS SOLN 3 ML TOPICAL (22:42)
[2024-10-05] MEDS: DOXYCYCLINE IV 100 MG in SODIUM CHLORIDE 0.9% IV 100 ML IVPB (22:42)
--- OUTSIDE RECORDS SUMMARY | 2024-10-05 22:43 | XMS_ITS | Encounter Summary ---
Author Organization [facility] Facility Care Team Providers Care Director Of Medical Staff Services Name Role Phone Ranulfo Nava MD Primary Care Provider [phone] Madina Lozano MD Unavailable [phone] Encounter Details Date Type Department Care Team (Latest Contact Info) Description 08/10/2017 Orders Only [facility] CLINCONV ProviderEulalia MD [address] [place] [address] Social History Tobacco Use Types Packs/Day Years Used Date Smoking Tobacco: Former Comments Unknown Sex and Gender Information Value Date Recorded Sex Assigned at Not on file Legal Sex Female 1:09 AM BOWLING BALL GRADER AND MARKER Gender Identity Female 04/22/2020 7:32 AM BOWLING BALL GRADER AND MARKER Sexual Orientation Straight 06/27/2021 7: 53 AM [...] on filedocumented in this encounter Care Teams Director Of Medical Staff Services Relationship Specialty Start Date End Date Ranulfo Nava MD PCP - General Family Medicine 05/06/18 Madina Lozano MD [address] [place] [address] Referring Physician Gynecology 07/05/22 documented as of this encounter
--- OUTSIDE RECORDS SUMMARY | 2024-10-05 22:43 | XMS_ITS | Encounter Summary ---
Author Organization [facility] Facility Care Team Providers Care Iron Cutter Name Role Phone Ranulfo Nava MD Primary Care Provider [phone] Madina Lozano MD Unavailable [phone] Encounter Details Date Type Department Care Team (Latest Contact Info) Description 07/18/2017 Orders Only [facility] CLINCONV Provider, MD Eulalia [address] [place] [address] Social History Tobacco Use Types Packs/Day Years Used Date Smoking Tobacco: Former Comments Unknown Sex and Gender Information Value Date Recorded Sex Assigned at Not on file Legal Sex Female 1:09 AM WEALTH MANAGEMENT MANAGER Gender Identity Female 04/22/2020 7:32 AM WEALTH MANAGEMENT MANAGER Sexual Orientation Straight 06/27/2021 7: 53 [...] on filedocumented in this encounter Care Teams Iron Cutter Relationship Specialty Start Date End Date Ranulfo Nava MD PCP - General Family Medicine 05/06/18 Madina Lozano MD [address] [place] [address] Referring Physician Gynecology 07/05/22 documented as of this encounter
--- OUTSIDE RECORDS SUMMARY | 2024-10-05 22:43 | XMS_ITS | Encounter Summary ---
Author Organization [facility] Facility Care Team Providers Care Ophthalmic Medical Technologist Name Role Phone Ranulfo Nava MD Primary Care Provider [phone] Madina Lozano MD Unavailable [phone] Encounter Details Date Type Department Care Team (Latest Contact Info) Description 09/06/2017 Orders Only [facility] CLINCONV Provider, MD Eulalia [address] [place] [address] Social History Tobacco Use Types Packs/Day Years Used Date Smoking Tobacco: Former Comments Unknown Sex and Gender Information Value Date Recorded Sex Assigned at Not on file Legal Sex Female 1:09 AM CORD CUTTER Gender Identity Female 04/22/2020 7:32 AM CORD CUTTER Sexual Orientation Straight 06/27/2021 7: 53 AM [...] on filedocumented in this encounter Care Teams Ophthalmic Medical Technologist Relationship Specialty Start Date End Date Ranulfo Nava MD PCP - General Family Medicine 05/06/18 Madina Lozano MD [address] [place] [address] Referring Physician Gynecology 07/05/22 documented as of this encounter
--- OUTSIDE RECORDS SUMMARY | 2024-10-05 22:43 | XMS_ITS | Encounter Summary ---
Author Organization [facility] Facility Care Team Providers Care Process Controls Technician Name Role Phone Ranulfo Nava MD Primary Care Provider [phone] Madina Lozano MD Unavailable [phone] Encounter Details Date Type Department Care Team (Latest Contact Info) Description 06/03/2018 Orders Only [facility] CLINCONV ProviderEulalia MD [address] [place] [address] Social History Tobacco Use Types Packs/Day Years Used Date Smoking Tobacco: Former Alcohol Use Standard Drinks/Week Comments No 0 (1 standard drink = 0.6 oz pur e alcohol) Comments Unknown Sex and Gender Information Value Date Recorded Sex Assigned at Not on file Legal Sex Female 1:09 AM SUPERVISOR ADVERTISING DISPATCH CLERKS Gender Identity Female 04/22/2020 7:32 AM SUPERVISOR ADVERTISING DISPATCH CLERKS Sexual Orientation Straight 06/27/2021 7: 53 AM [...] on filedocumented in this encounter Care Teams Process Controls Technician Relationship Specialty Start Date End Date Ranulfo Nava MD PCP - General Family Medicine 05/06/18 Madina Lozano MD [address] [place] [address] Referring Physician Gynecology 07/05/22 documented as of this encounter
--- OUTSIDE RECORDS SUMMARY | 2024-10-05 22:44 | XMS_ITS | Clinical Summary ---
Author Organization [facility] Address [address] [place] [address] Care Team Providers Care Experimental Mechanic Spacecraft Name Role Phone Ranulfo Nava MD Primary Care Provider [phone] Madina Lozano MD Unavailable [phone] Allergies Active Allergy Reactions Criticality Noted Date [...] mouth 2 (two) times a day Active kcpzx-1-mns-e pa-dpa-fish oil 1,050-1,200 mg capsule 1 capsule [...] Department Care Team Description 07/21/2024 Results Follow-Up [facility] Surgery [address] [place] [id number] Madeline Hatch NP Screening Mammogram Bilateral W Allie 07/18/2024 9:15 AM CDT Office Visit [facility] Surgery [address] [place] [address] [address] [place] [id number] Madeline Hatch NP Infiltrating ductal carcinoma of right breast (HCC) (Primary Dx); History of breast cancer; Encounter for screening mammogram for malignant neoplasm of breast 07/18/2024 9:12 AM CDT - 07/18/2024 11:59 PM CDT Hospital Encounter [facility] - Breast Imaging [address] [facility] Floor [address] [place] [address] History of breast cancer; Encounter for screening mammogram for malignant neoplasm of breast Discharge Disposition: Discharge to home or self care 07/07/2024 Orders Only [facility] Surgery [address] [facility] Floor [address] [place] [id number] Oksana Burns CMA History of breast cancer [...] on file Legal Sex Female 1:09 AM METAL HANGER Gender Identity Female 04/22/2020 7:32 AM METAL HANGER Sexual Orientation Straight 06/27/2021 7: 53 AM CDT Obstetrics History Last Filed Vital Signs Vital Sign Reading Time Taken Comments Blood Pressure 126/70 05/23/2024 7:00 AM METAL HANGER pt reported Pulse 67 05/23/2024 7:00 AM METAL HANGER Temperature 36.6 C (97.9 F) 05/19/2024 8:43 AM METAL HANGER Respiratory Rate 18 03/27/2023 11:5 1 AM METAL HANGER Oxygen Saturation 99% 05/19/2024 8:4 3 AM METAL HANGER Inhaled Oxygen Concentration - - Weight 52.7 [...] compared to prior imaging studies performed at [facility] on 07/04/2021, 07/05/2022 and 07/11/2023. There [...] compared to prior imaging studies performed at [facility] on 07/04/2021, 07/05/2022 and 07/11/2023. There [...] Most Recently Relevant to Health Maintenance Insurance [facility] MEDICARE ADVANTAGE [facility] Address: [facility] [address] [place] [address] [facility] Address: [address] [place] [phone] [facility] Address: [address] [place] [address] Advance Directives For more information, please contact: [phone] Documents on File Type Date Recorded Patient Stem Roller Expl anation Power of Cryptozoologist 09/01/2021 6:51 AM Advance Directives and Livin g Will 09/01/2021 6:50 AM ADVANCE DIRECTIVE 11/01/2020 Care Teams Experimental Mechanic Spacecraft Relationship Specialty Start Date End Date Ranulfo Nava MD PCP - General Family Medicine 05/06/18 Madina Lozano MD [address] [facility] [address] [place] [address] Referring Physician Gynecology 07/05/22
--- OUTSIDE RECORDS SUMMARY | 2024-10-05 22:44 | XMS_ITS | Clinical Summary ---
Author Organization [facility] Address [address] [place] [address] Care Team Providers Care Photographic Aide Name Role Phone Rafael Olea MD Primary Care Provider [phone] Allergies Active Allergy Reactions Criticality Noted Date Comments Bee Venom Rash High 08/07/2017 Penicillins Rash Low 08/07/2017 Medications vitamin D2, ergocalciferol, [address] UNITS capsule Take 50,000 Units by mouth [...] patient's age to complete this topic Insurance * Guarantor: mEmy Cuevas Account Type Relation to Patient Date of Phone Billing Address Personal/Family Self [address] [place] [address] [facility] Advance Directives Documents on File Type Date Recorded Patient Remote Sensing Surveyor Expl anation Advance Directives and Living Will 09/09/2017 2:09 PM 05-22-16 POA FOR HEALTHCARE Care Teams Photographic Aide Relationship Specialty Start Date End Date Rafael Olea MD [address] [place] [id number] PCP - General FAMILY PRACTICE 07/19/17
--- OUTSIDE RECORDS SUMMARY | 2024-10-05 22:44 | XMS_ITS | Referral Summary ---
Author Organization [facility] al Address [address] [place] [address] Care Team Providers Care Biofuels Plant Superintendent Name Role Phone Ranulfo Nava MD Primary Care Provider [phone] Madina Lozano MD Unavailable [phone] Encounters Date Type Department Care Team Description 07/21/2024 Results Follow-Up [facility] [address] [place] [phone] Madeline Hatch NP Screening Mammogram Bilateral W Allie 07/18/2024 9:12 AM CDT - 07/18/2024 11:59 PM CDT Hospital Encounter [facility] - Breast Imaging [address] [place] [id number] History of breast cancer; Encounter for screening mammogram for malignant neoplasm of breast Discharge Disposition: Discharge to home or self care 07/18/2024 9:15 AM CDT Office Visit [facility] [address] [place] [phone] Madeline Hatch NP Infiltrating ductal carcinoma of right breast (HCC) (Primary Dx); History of breast cancer; Encounter for screening mammogram for malignant neoplasm of breast 07/07/2024 Orders Only [facility] [address] [place] [address] [address] [place] [phone] Oksana Burns CMA History of [...] mouth 2 (two) times a day Active [id number] pa-dpa-fish oil 1,050-1,200 mg capsule 1 capsule [...] on file Legal Sex Female 1:09 AM PARIMUTUEL TICKET CHECKER Gender Identity Female 04/22/2020 7:32 AM PARIMUTUEL TICKET CHECKER Sexual Orientation Straight 06/27/2021 7: 53 AM CDT Last Filed Vital Signs Vital Sign Reading Time Taken Comments Blood Pressure 126/70 05/23/2024 7:00 AM PARIMUTUEL TICKET CHECKER pt reported Pulse 67 05/23/2024 7:00 AM PARIMUTUEL TICKET CHECKER Temperature 36.6 C (97.9 F) 05/19/2024 8:43 AM PARIMUTUEL TICKET CHECKER Respiratory Rate 18 03/27/2023 11:5 1 AM PARIMUTUEL TICKET CHECKER Oxygen Saturation 99% 05/19/2024 8:4 3 AM PARIMUTUEL TICKET CHECKER Inhaled Oxygen Concentration - - Weight 52.7 [...] compared to prior imaging studies performed at [facility] on 07/04/2021, 07/05/2022 and 07/11/2023. There are [...] compared to prior imaging studies performed at [facility] on 07/04/2021, 07/05/2022 and 07/11/2023. There are [...] Recently Relevant to Health Maintenance Insurance [facility] MEDICARE ADVANTAGE MEDICARE ADVANTAGE Advance Directives For more information, please contact: [phone] Documents on File Type Date Recorded Patient Filler Feeder Expl anation Power of Commissioned [employer] Officer 09/01/2021 6:51 AM Advance Directives and Livin g Will 09/01/2021 6:50 AM ADVANCE DIRECTIVE 11/01/2020 Care Teams Biofuels Plant Superintendent Relationship Specialty Start Date End Date Ranulfo Nava MD PCP - General Family Medicine 05/06/18 Madina Lozano MD [address] [address] Referring Physician Gynecology 07/05/22
--- OUTSIDE RECORDS SUMMARY | 2024-10-05 22:44 | XMS_ITS | Encounter Summary ---
Author Organization [facility] Care Team Providers Care Consumer Marketing Analyst Name Role Phone Ranulfo Nava MD Primary Care Provider [phone] Madina Lozano MD Unavailable [phone] Encounter Details Date Type Department Care Team (Latest Contact Info) Description 06/08/2017 Orders Only [facility]INCONV Provider, MD Eulalia [address] [place] [phone] Social History Tobacco Use Types Packs/Day Years Used Date Smoking Tobacco: Former Comments Unknown Sex and Gender Information Value Date Recorded Sex Assigned at Not on file Legal Sex Female 1:09 AM PHY THERAPIST Gender Identity Female 04/22/2020 7:32 AM PHY THERAPIST Sexual Orientation Straight 06/27/2021 7: 53 AM [...] on filedocumented in this encounter Care Teams Consumer Marketing Analyst Relationship Specialty Start Date End Date Ranulfo Nava MD PCP - General Family Medicine 05/06/18 Madina Lozano MD [address] [place] [address] Referring Physician Gynecology 07/05/22 documented as of this encounter
[2024-10-05] MEDS: TETANUS,DIPHTHERIA,AC PERTUSSIS ADULT (0.5 ML) BOOSTRIX IM (22:45)
== END 2024-10-06 00:55 | disposition home or self-care (01) ==
PROVIDERS: Emergency Provider Student in an Organized Health Care Education/Training Program; PCP Family Medicine
DX: S51.851A Open bite of right forearm, initial encounter (principal); Z23 Encounter for immunization; W54.0XXA Bitten by dog, initial encounter
CPT/HCPCS: 12001; 90471; 90715; 96365; 99283